=== PATIENT | female | born 1985 | race Caucasian/White ===

== ENCOUNTER 2017-05-18 11:57 | Emergency (ER) | payer BC, OTHER ==
[2017-05-18 12:39] LABS: Urine Bilirubin Negative (NEGATIVE); Urine Ketone Negative (NEGATIVE); Urine Nitrite Negative (NEGATIVE); Urine Protein Negative (NEGATIVE); Urine Specific Gravity >=1.030 SP.GR. (1.005-1.010); Urine Urobilinogen Normal (NORMAL)
[2017-05-18 12:44] LABS: Urine Appearance Clear; Urine Blood 5 /ul (NEGATIVE); Urine Color Yellow
[2017-05-18 12:48] VITALS: BP 129/85
[2017-05-18 12:48] LABS: Urine Bacteria None Seen; Urine Mucus Few - 1+; Urine RBC 0-5 /hpf (0-5); Urine WBC TRACE /hpf (0-5)
--- NOTE | 2017-05-18 12:48 | ERNOTE ---
Medical Problem HPI - General Chief Complaint: General Assessment Time Seen by Provider: 05/18/17 12:19 Source: patient Exam Limitations: no limitations - Immun/Allergies/Home Medications Immunizations: IMMUNIZATION HX Immunizations Up to Date Yes History of Influenza Vaccine No Allergies/Adverse Reactions: Allergies tramadol Allergy (Mild, Verified 05/18/17 12:06) Vomiting methadone [Methadone] Adverse Reaction (Mild, Verified 05/18/17 12:06) vomitting Home Medications: HOME MEDICATIONS Ibuprofen [Motrin] 600 mg PO Q6H PRN 07/21/13 [Last Taken Unknown] Cyclobenzaprine HCl [Flexeril] 10 mg PO TID PRN #30 tab 05/18/17 [Last Taken Unknown] Omeprazole 40 mg PO DAILY 05/18/17 [Last Taken Unknown] Promethazine HCl [Phenergan (Promethazine)] 25 mg PO Q6H PRN 05/18/17 [Last Taken Unknown] tiZANidine HCL [Tizanidine HCl] 8 mg PO HS 05/18/17 [Last Taken Unknown] - History of Present History Narrative: Patient has a long-standing history of lumbar back pain and is having an exacerbation of that same pain. She did have a lumbar x-ray that was done and it noted a kidney stone in the pelvis of the kidney and she was worried that possibly that stone head started to fall into the ureter. He is having pain in her typical area in the lower lumbar spine and has had a variety of tests including MRI of the lumbar spine for this. Timing: constant Severity: moderate Review of Systems - Review of Systems Constitutional: Present: See HPI EYE: Present: no symptoms reported ENT: Present: no symptoms reported Respiratory: Present: no symptoms reported Cardiology: Present: no symptoms reported Gastrointestinal/Abdominal: Present: no symptoms reported Genitourinary: Present: no symptoms reported Musculoskeletal: Present: See HPI, back pain Skin: Present: no symptoms reported Neurological: Present: no symptoms reported Endocrine: Present: no symptoms reported Hematologic/Lymphatic: Present: no symptoms reported Psych: Present: no symptoms reported - Patient's Past Medical History Patient History - Medical: GERD, Kidney stone, Osteoarthritis - of the lumbar spine, Other Patient History - Cardiac/Respiratory: No pertinent hx Patient History - Cancer: No Hx of Cancer Patient History - Surgical Procedures: T & A Patient History - Other: None - Social History Living Situations: home Abuse History: No History of abuse Psych History: No pertinent hx Alcohol Use: none Drug Use: none - Immunizations Immunizations Up to Date: Yes History of Influenza Vaccine: No Physical Exam - Physical Exam General Appearance: Present: wd/wn, alert, moderate distress Head Exam: Present: normal inspection, no evidence of injury Eye Exam: Normal inspection: bilateral, PERRL: bilateral Ears, Nose, Throat: Present: normal ENT inspection, H, normal pharynx Neck: Present: normal inspection, nontender Respiratory: Present: no respiratory distress, normal breath sounds, no accessory muscle use, chest nontender, lungs clear Cardiovascular/Chest: Present: regular rate, rhythm, no murmur, normal peripheral pulses Gastrointestinal/Abdominal: Present: normal bowel sounds, nontender, nondistended, soft, no organomegaly Rectal Exam: Present: deferred Back Exam: Present: decreased range of motion, muscle spasm, other - similar lumbar pain that she's had for the last 4-5 years Extremity Exam: Present: normal inspection, non-tender, no edema, normal range of motion Neurological Exam: Present: alert, oriented, normal mood/affect Skin Exam: Present: normal color, warm/dry Lymphatic Exam: Present: no adenopathy ED Progress - Results and Orders Patient's Lab Results:: I have reviewed the patient's lab results. - Vital Signs Patient's Vital Signs:: I have reviewed the patient's vital signs. Vital Signs: Vital Signs 05/18/17 12:00 Temperature 36.1 C L Pulse Rate 61 Respiratory 12 Rate Blood Pressure 129/79 O2 Sat by Pulse 100 Oximetry - Progress/Reassessment Chief Complaint: General Assessment Plan - Plan Plan: Patient has chronic low back pain and she states she has a physical therapy appointment that is going to occur before [place]. I'm reluctant to give the patient any heavy narcotic pain medications and she is already been on both tramadol and methadone in the past which now has an allergy to. We will try Flexeril and nonsteroidal anti-inflammatories for her chronic back pain. Departure Clinical Impression: Lumbar back pain Qualifiers: Chronicity: chronic Back pain laterality: midline Sciatica presence: without sciatica Qualified Code(s): M54.5 - Low back pain - Departure Disposition: Home self-care Condition: Good Instructions: Chronic Back Pain Referrals: Jayde Laura ARNP [Primary Care Provider] - Prescriptions: Cyclobenzaprine HCl [Flexeril] 10 mg PO TID PRN #30 tab PRN Reason: MUSCLE SPASMS
== END 2017-05-18 13:20 | disposition home or self-care (01) ==
LOC: ER 11:57
DX: M54.5 Low back pain (principal); Z87.442 Personal history of urinary calculi; K21.9 Gastro-esophageal reflux disease without esophagitis